=== PATIENT | female | born 1995 | race Hispanic/Latino ===

== ENCOUNTER 2024-12-04 03:19 | Inpatient (IN) | payer BC ==
[~2024-12-04] VITALS: Ht 157.5 cm; Wt 76.2 kg
[~2024-12-04 03:19] MED LIST: CAL-CITRATE PL1 EACH MT; CALCIUM500 MG PO; IRON325 M1 PO; PRENATA CHEWAB1 EACH PO
[2024-12-04] MEDS ORDERED: ondansetron HCL 4 MG/2 ML VIAL IV PRN (03:30)
[2024-12-04] MEDS ORDERED: LACTATED RINGER'S 1,000 ML IV SCH (03:30)
[2024-12-04] MEDS ORDERED: CALCIUM CARBONATE 500 MG CHEW PO PRN (03:30)
[2024-12-04] MEDS ORDERED: MAGNESIUM HYDROXIDE/AL HYDROX 30 ML CUP PO PRN (03:30)
[2024-12-04] MEDS ORDERED: LACTATED RINGER'S 1,000 ML IV PRN (03:30)
[2024-12-04 03:54] LABS: HEMATOCRIT 34.4 % (35.0-50.0); HEMOGLOBIN 12.1 g/dL (12.0-18.0); MCH 31.1 (27-36); MCHC 35.3 g/dl (30-36); RBC 3.91 M/ul (4.3-5.7); RDW 13.5 (10.5-15.0)
[2024-12-04 04:29] LABS: ABO A; ANTIBODY SCREEN NEGATIVE; RH POSITIVE
[2024-12-04] MEDS ORDERED: OXYTOCIN/0.9 % SODIUM CHLORIDE 30 UNITS/500 ML BAG IV SCH (04:30)
[2024-12-04 07:14] LABS: AMPHETAMINES, URINE NEGATIVE (NEGATIVE); BARBITURATES, URINE NEGATIVE (NEGATIVE); BENZODIAZEPINE, URINE NEGATIVE (NEGATIVE); BUPRENORPHINE, URINE NEGATIVE (NEGATIVE); CANNABINOID, URINE NEGATIVE (NEGATIVE); COCAINE, URINE NEGATIVE (NEGATIVE); ECSTASY, URINE NEGATIVE (NEGATIVE); FENTANYL, URINE NEGATIVE (NEGATIVE); METHADONE, URINE NEGATIVE (NEGATIVE); OPIATES, URINE NEGATIVE (NEGATIVE); OXYCODONE, URINE NEGATIVE (NEGATIVE); PHENCYCLIDINE, URINE NEGATIVE (NEGATIVE)
[2024-12-04] MEDS ORDERED: OXYTOCIN/0.9 % SODIUM CHLORIDE 500 ML IV SCH ×2 (10:30→19:30)
[2024-12-04] MEDS ORDERED: fentaNYL citrate 100 MCG/2 ML VIAL ONE (14:51)
[2024-12-04] MEDS ORDERED: ROPIVACAINE 0.2% 200 ML BAG ONE (14:51)
[2024-12-04] MEDS ORDERED: ROPIVACAINE 0.2% 200 ML BAG EPIDURAL SCH (16:00)
[2024-12-04] MEDS ORDERED: ePHEDrine sulfate 5 MG/ML SYRINGE IV PRN (16:00)
[2024-12-04] MEDS ORDERED: LACTATED RINGER'S 500 ML IV PRN (16:00)
[2024-12-04] MEDS ORDERED: LACTATED RINGER'S 2,000 ML IV ONE (16:00)
[2024-12-04] MEDS ORDERED: LIDOCAINE 2% VISCOUS 6 ML SYR TOP ONE (19:30)
[2024-12-04] MEDS ORDERED: BENZOCAINE 60 ML AEROSOL TOP PRN (19:30)
[2024-12-04] MEDS ORDERED: HYDROCORTISONE ACETATE 25 MG SUPP PR PRN (19:30)
[2024-12-04] MEDS ORDERED: MAGNESIUM HYDROXIDE 30 ML UDC PO PRN (19:30)
[2024-12-04] MEDS ORDERED: IBUPROFEN 600 MG TAB PO PRN (19:30)
[2024-12-04] MEDS ORDERED: WITCH HAZEL/GLYCERIN 1 EA PAD TOP PRN (19:30)
[2024-12-04] MEDS ORDERED: ACETAMINOPHEN 325 MG TAB PO PRN (19:30)
[2024-12-04 19:41] VITALS: BP 102/55
[2024-12-04] MEDS ORDERED: SENNOSIDES/DOCUSATE 1 EA TAB PO SCH (21:00)
== END 2024-12-05 20:55 | disposition home or self-care (01) | DRG 807 ==
LOC: FBC 03:19
PROVIDERS: ADMIT Obstetrics & Gynecology; ATTEND Obstetrics & Gynecology
PROC: 10E0XZZ Delivery of Products of Conception, External Approach (ICD-10-PCS; principal; 2024-12-04)
PROC: 3E0R3BZ Introduction of Anesthetic Agent into Spinal Canal, Percutaneous Approach (ICD-10-PCS; 2024-12-04)
PROC: 00HU33Z Insertion of Infusion Device into Spinal Canal, Percutaneous Approach (ICD-10-PCS; 2024-12-04)
DX: O99.02 Anemia complicating childbirth (principal); Z37.0 Single live birth; Z3A.39 39 weeks gestation of pregnancy; Z79.899 Other long term (current) drug therapy; Z98.890 Other specified postprocedural states
CPT/HCPCS: 01960; 36415; 80307; 85027; 86850; 86900; 86901; A9270; J2795; J3010; J7121